=== PATIENT | female | born 1970 | race Caucasian/White ===

== ENCOUNTER 2017-10-11 14:57 | Emergency (ER) | payer OTHER ==
[~2017-10-11] VITALS: Ht 165.1 cm; Wt 64.6 kg
[~2017-10-11 14:57] MED LIST: DIAZ5TAB7 PO
[2017-10-11 15:02] VITALS: BP 115/66
--- NOTE | 2017-10-11 15:09 | NUR ---
Dr. Rodriges evaluating patient at bedside.
--- NOTE | 2017-10-11 15:10 | NUR ---
C/O RT RING FINGER PAIN X 8 DAYS; WITH BLOODY DISHCARGE 2 DAYS AGO; APEARS SWOLLEN; DENIES INJURY HX; DENIES RX; CEPHALEXIN X 8 DAYS
[2017-10-11] MEDS ORDERED: CLINDAMYCIN 600 MG/4 ML VIAL IM ONE (15:15)
[2017-10-11] MEDS ORDERED: DEXAMETHASONE 10 MG/ML VIAL IM ONE (15:15)
[2017-10-11 15:57] VITALS: BP 114/62
--- NOTE | 2017-10-11 15:57 | NUR ---
Patient discharged with v/s stable. Written and verbal after care instructions given and explained. Patient alert, oriented and verbalized understanding of instructions. Ambulatory with steady gait. All questions addressed prior to discharge. ID band removed. Patient advised to follow up with PMD. Rx of ALEVE/CLINDAMYCIN given. Patient educated on indication of medication including possible reaction and side effects. Opportunity to ask questions provided and answered.
== END 2017-10-11 15:57 | disposition home or self-care (01) ==
LOC: MED 14:57
DX: L03.011 Cellulitis of right finger (principal); Z88.8 Allergy status to other drugs, medicaments and biological substances; Z79.899 Other long term (current) drug therapy
CPT/HCPCS: 96372; 99284; J1100; J3490

== ENCOUNTER 2018-01-12 14:36 | Emergency (ER) | payer OTHER ==
[~2018-01-12] VITALS: Ht 165.1 cm; Wt 61.2 kg
[2018-01-12 15:07] VITALS: BP 122/85
--- NOTE | 2018-01-12 15:10 | NUR ---
PATIENT AMB TO BED 10
--- NOTE | 2018-01-12 15:16 | NUR ---
BIB SELF. LLQ PAIN X 2 WEEKS. STATES SHE SAW HER DOCTOR AND IS SCHEDULED FOR A RENAL AND ABD U/S BUT DECIDED TO COME IN BECAUSE THE PAIN GOT WORSE TODAY. DENIES N/V/D; SKIN IS PINK/WARM/DRY; AAOX4 WITH EVEN AND STEADY GAIT; LUNGS CLEAR BL; HR EVEN AND REGULAR; PT DENIES ANY FEVER, CP, SOB, OR COUGH AT THIS TIME; PATIENT STATES PAIN OF 6/10 AT THIS TIME; VSS; PATIENT POSITIONED FOR COMFORT; HOB ELEVATED; BEDRAILS UP X2; BED DOWN. ER MD MADE AWARE OF PT STATUS.
--- NOTE | 2018-01-12 16:45 | NUR ---
NO STATED NEEDS AT THIS TIME.
[2018-01-12] MEDS ORDERED: KETOROLAC 60 MG/2 ML VIAL IM ONE (17:50)
[2018-01-12] MEDS ORDERED: ONDANSETRON 4 MG ODT PO ONE (17:50)
[2018-01-12 18:22] VITALS: BP 120/86
--- NOTE | 2018-01-12 18:22 | NUR ---
Patient discharged with v/s stable. Written and verbal after care instructions given and explained. Patient alert, oriented and verbalized understanding of instructions. Ambulatory with steady gait. All questions addressed prior to discharge. ID band removed. Patient advised to follow up with PMD. Rx of ZOFRAN, MOTRIN, NORCO, PRILOSEC given. Patient educated on indication of medication including possible reaction and side effects. Opportunity to ask questions provided and answered.
== END 2018-01-12 18:22 | disposition home or self-care (01) ==
LOC: MED 14:36
DX: R11.0 Nausea (principal); R10.32 Left lower quadrant pain; Z90.710 Acquired absence of both cervix and uterus; Z79.899 Other long term (current) drug therapy; Z88.5 Allergy status to narcotic agent; Z88.8 Allergy status to other drugs, medicaments and biological substances
CPT/HCPCS: 81002; 81025; 96372; 99283; J1885; Q0162

== ENCOUNTER 2018-11-25 16:24 | Emergency (ER) | payer OTHER ==
[~2018-11-25] VITALS: Ht 165.1 cm; Wt 63.5 kg
[2018-11-25 16:39] VITALS: BP 129/74
--- NOTE | 2018-11-25 16:40 | NUR ---
TO LOBBY AWATING BED IN ED
[2018-11-25 17:39] LABS: BASOPHILS % (AUTO) 0.4 % (0.0-2.0); EOSINOPHILS % (AUTO) 0.1 % (0.0-4.0); HEMOGLOBIN 13.2 g/dL (12.0-16.0); LYMPHOCYTES # (AUTO) 1.7 K/uL (2.5-16.5); LYMPHOCYTES % (AUTO) 14.5 % (20.5-51.1); MEAN CORPUSCULAR HEMOGLOBIN 30 pg (27-31); MEAN CORPUSCULAR HGB CONC 33 g/dL (33-37); MEAN CORPUSCULAR VOLUME 90.7 fL (80-94); MONOCYTES # (AUTO) 0.9 K/uL (0.8-1.0); MONOCYTES % (AUTO) 7.7 % (1.7-9.3); NEUTROPHILS # (AUTO) 8.8 K/uL (1.8-7.7); NEUTROPHILS % (AUTO) 77.3 % (42.2-75.2); PLATELET COUNT (AUTO) 169 K/uL (140-450); RED BLOOD CELL COUNT(AUTO) 4.41 MIL/uL (4.20-5.40); RED CELL DISTRIBUTION WIDTH 14.4 % (11.6-13.7); WHITE BLOOD COUNT (AUTO) 11.4 K/uL (4.8-10.8)
--- NOTE | 2018-11-25 17:56 | NUR ---
PT REMAINS IN LOBBY IN STABLE CONDITION. WILL CONTINUE TO ASSESS.
[2018-11-25 18:03] LABS: APPEARANCE,URINE HAZY (CLEAR); COLOR,URINE YELLOW (YELLOW)
[2018-11-25 18:04] LABS: BILIRUBIN,URINE NEGATIVE (NEGATIVE); BLOOD, URINE 3+ (NEGATIVE); LEUKOCYTE ESTERASE ,URINE 2+ (NEGATIVE); NITRITE, URINE NEGATIVE (NEGATIVE); UGLUCOSE TRACE (NEGATIVE)
[2018-11-25 18:12] LABS: CARBON DIOXIDE 30.9 mmol/L (21-32); POTASSIUM 3.9 mmol/L (3.5-5.1)
[2018-11-25 18:13] LABS: CREATININE 0.7 mg/dL (0.6-1.3)
[2018-11-25 18:34] LABS: RBC,URINE 20-50 /HPF (0-5); WBC,URINE 20-60 /HPF (0-5)
[2018-11-25 18:51] LABS: ALBUMIN 4.1 g/dL (3.4-5.0)
--- NOTE | 2018-11-25 19:07 | NUR ---
PT AMBULATED TO ER BED 01
--- NOTE | 2018-11-25 19:15 | NUR ---
DR ALCANTAR AT BEDSIDE EVALUATING PT
--- NOTE | 2018-11-25 19:30 | NUR ---
48 Y/O FEMALE PRESENTS TO ED, C/O LLQ PAIN X1 DAY. PT STATES PAIN RADIATES TO FLANK, 10/10 ACHING PAIN. DENIES ANY VOMITING BUT COMPLAINS OF NAUSEA. BS ACTIVE X4 QUADRANTS. PT DENIES ANY PAIN VOIDING. DENIES TAKING ANY MEDICATIONS TO ALLEVIATE PAIN. PT VSS. ERMD AWARE. WILL CONTINUE TO MONITOR.
[2018-11-25] MEDS ORDERED: traMADol 50 MG TAB PO ONE (20:05)
[2018-11-25 20:23] VITALS: BP 121/71
--- NOTE | 2018-11-25 20:23 | NUR ---
PT DISCHARGED WITH PAPERWORK. RX MOTRIN, BACTRIM, MINERAL OIL, LACUTLOSE. EDUCATED PT REGARDING MEDICATIONS AND S/E. EDUCATED PT REGARDING D/C DIAGNOSIS AND INSTRUCTIONS. PT VERBALIZED UNDERSTANDING OF TEACHING. TOLD PT TO FOLLOW UP WITH PCP AND WHEN TO RETURN TO ED. PT VSS. ALL QUESTIONS ANSWERED.
== END 2018-11-25 20:23 | disposition home or self-care (01) ==
LOC: MED 16:24
DX: N39.0 Urinary tract infection, site not specified (principal); R11.2 Nausea with vomiting, unspecified; F41.9 Anxiety disorder, unspecified; Z90.710 Acquired absence of both cervix and uterus; Z79.899 Other long term (current) drug therapy; Z88.5 Allergy status to narcotic agent; Z88.8 Allergy status to other drugs, medicaments and biological substances
CPT/HCPCS: 36415; 74018; 80053; 81001; 81025; 83690; 85025; 87086; 87186; 99284; Q0092

== ENCOUNTER 2018-11-26 14:43 | Emergency (ER) | payer OTHER ==
[~2018-11-26] VITALS: Ht 165.1 cm; Wt 63.5 kg
[2018-11-26 14:54] VITALS: BP 125/73
[2018-11-26 20:00] VITALS: BP 131/75
== END 2018-11-26 20:00 | disposition home or self-care (01) ==
LOC: MED 14:43
DX: K59.00 Constipation, unspecified (principal); R11.0 Nausea; F41.9 Anxiety disorder, unspecified; Z90.710 Acquired absence of both cervix and uterus; Z98.890 Other specified postprocedural states; Z79.899 Other long term (current) drug therapy; Z88.5 Allergy status to narcotic agent
CPT/HCPCS: 81002; 81025; 99284

== ENCOUNTER 2019-04-21 20:21 | Emergency (ER) | payer OTHER ==
[~2019-04-21] VITALS: Ht 167.6 cm; Wt 59.9 kg
[2019-04-21 20:28] VITALS: BP 123/80
[2019-04-21] MEDS ORDERED: KETOROLAC 15 MG/ML VIAL IM ONE (21:00)
[2019-04-21 21:30] VITALS: BP 123/80
== END 2019-04-21 21:29 | disposition home or self-care (01) ==
LOC: MED 20:21
DX: R21 Rash and other nonspecific skin eruption (principal); M54.9 Dorsalgia, unspecified; F41.9 Anxiety disorder, unspecified; Z79.899 Other long term (current) drug therapy; Z88.1 Allergy status to other antibiotic agents; W57.XXXA Bitten or stung by nonvenomous insect and other nonvenomous arthropods, initial encounter; Y93.89 Activity, other specified; Y92.89 Other specified places as the place of occurrence of the external cause; Y99.8 Other external cause status
CPT/HCPCS: 90471; 90715; 96372; 99284; J1885

== ENCOUNTER 2021-08-03 17:43 | Emergency (ER) | payer OTHER ==
[~2021-08-03] VITALS: Ht 165.1 cm; Wt 61.2 kg
[~2021-08-03 17:43] MED LIST changes: -DIAZ5TAB7 PO; +DIAZ5TAB8 PO
[2021-08-03 18:04] VITALS: BP 99/55
--- NOTE | 2021-08-03 18:11 | NUR ---
C/O 09/17 LOWER ABD PAIN, LOWER BACK PAIN, FONTENOT,Hematuria X TODAY. PMH: DENIES
--- NOTE | 2021-08-03 19:16 | NUR ---
PT AMBULATED TO BED 2
--- NOTE | 2021-08-03 19:37 | NUR ---
ER AT BEDSIDE
[2021-08-03] MEDS ORDERED: KETOROLAC 60 MG/2 ML VIAL IM ONE (19:40)
[2021-08-03] MEDS ORDERED: IBUP-2213 PO ×2 (19:48→20:04)
[2021-08-03] MEDS ORDERED: PHEN-1877 PO ×2 (19:48→20:04)
[2021-08-03] MEDS ORDERED: CIPR500T4 PO ×2 (19:48→20:04)
[2021-08-03 20:05] VITALS: BP 102/64
--- NOTE | 2021-08-03 20:06 | NUR ---
Patient discharged with v/s stable. Written and verbal after care instructions given and explained. Patient alert, oriented and verbalized understanding of instructions. Ambulatory with steady gait. All questions addressed prior to discharge. ID band removed. Patient advised to follow up with PMD. Rx of CIPRO, IBUPROFEN, AND PYRIDIUM given. Patient educated on indication of medication including possible reaction and side effects. Opportunity to ask questions provided and answered. VSS, A/OX4, AMBULATORY
== END 2021-08-03 20:06 | disposition home or self-care (01) ==
LOC: MED 17:43
DX: N39.0 Urinary tract infection, site not specified (principal); F41.9 Anxiety disorder, unspecified; Z90.710 Acquired absence of both cervix and uterus; Z98.890 Other specified postprocedural states; Z79.899 Other long term (current) drug therapy; Z88.5 Allergy status to narcotic agent
CPT/HCPCS: 81002; 81025; 96372; 99283; J1885

== ENCOUNTER 2021-08-06 17:37 | Emergency (ER) | payer OTHER ==
[~2021-08-06] VITALS: Ht 162.6 cm; Wt 65.8 kg
[~2021-08-06 17:37] MED LIST changes: +CIPR500T4 PO; +IBUP-2213 PO; +PHEN-1877 PO
[2021-08-06 18:07] VITALS: BP 115/64
[2021-08-06 19:07] LABS: BASOPHILS % (AUTO) 0.3 % (0.0-2.0); EOSINOPHILS % (AUTO) 0.6 % (0.0-4.0); HEMATOCRIT 40.2 % (36-48); HEMOGLOBIN 13.4 g/dL (12.0-16.0); LYMPHOCYTES # (AUTO) 0.9 K/uL (2.5-16.5); LYMPHOCYTES % (AUTO) 16.5 % (20.5-51.1); MEAN CORPUSCULAR HEMOGLOBIN 30 pg (27-31); MEAN CORPUSCULAR HGB CONC 33 g/dL (33-37); MEAN CORPUSCULAR VOLUME 88.9 fL (80-94); MONOCYTES # (AUTO) 0.3 K/uL (0.8-1.0); MONOCYTES % (AUTO) 5.7 % (1.7-9.3); NEUTROPHILS # (AUTO) 4.2 K/uL (1.8-7.7); NEUTROPHILS % (AUTO) 76.9 % (42.2-75.2); PLATELET COUNT (AUTO) 134 K/uL (140-450); RED BLOOD CELL COUNT(AUTO) 4.52 MIL/uL (4.20-5.40); RED CELL DISTRIBUTION WIDTH 13.6 % (11.6-13.7); WHITE BLOOD COUNT (AUTO) 5.4 K/uL (4.8-10.8)
--- NOTE | 2021-08-06 19:36 | NUR ---
Dr. Santos examining patient.
[2021-08-06] MEDS ORDERED: PHENAZOPYRIDINE 100 MG TAB PO ONE (19:45)
[2021-08-06] MEDS ORDERED: KETOROLAC 30 MG/ML VIAL IM ONE (19:45)
[2021-08-06 19:51] LABS: CARBON DIOXIDE 28.3 mmol/L (21-32); CREATININE 0.8 mg/dL (0.6-1.3); POTASSIUM 4.3 mmol/L (3.5-5.1); TOTAL BILIRUBIN 0.5 mg/dL (0.0-1.0)
[2021-08-06] MEDS ORDERED: SULFAMETH/TRIMETH DS 800/160MG 1 TAB PO ONE (20:00)
--- NOTE | 2021-08-06 20:31 | NUR ---
Patient ambulated to bed 4.
[2021-08-06] MEDS ORDERED: PYR100 PO (20:38)
[2021-08-06] MEDS ORDERED: ACET-10509 PO (20:38)
[2021-08-06] MEDS ORDERED: SULF-59 PO (20:38)
--- NOTE | 2021-08-06 21:00 | NUR ---
51 YO F C/O DIARRHEA WITH LOWER ABDOMINAL CRAMPING SINCE THIS AM CURRENTLY ON ANTIBIOTICS FOR UTI
--- NOTE | 2021-08-06 21:40 | NUR ---
Patient discharged with v/s stable. Written and verbal after care instructions given and explained. Patient alert, oriented and verbalized understanding of instructions. Ambulatory with steady gait. All questions addressed prior to discharge. ID band removed. Patient advised to follow up with PMD. Rx of TYLENOL, PYRIDIUM, BACTRIM given. Patient educated on indication of medication including possible reaction and side effects. Opportunity to ask questions provided and answered.
[2021-08-06 22:08] LABS: APPEARANCE,URINE CLEAR (CLEAR); BILIRUBIN,URINE NEGATIVE (NEGATIVE); BLOOD, URINE NEGATIVE (NEGATIVE); COLOR,URINE ORANGE (YELLOW); LEUKOCYTE ESTERASE ,URINE NEGATIVE (NEGATIVE); NITRITE, URINE NEGATIVE (NEGATIVE); UGLUCOSE 1+ (NEGATIVE)
== END 2021-08-06 21:40 | disposition home or self-care (01) ==
LOC: MED 17:37
DX: N39.0 Urinary tract infection, site not specified (principal); F41.9 Anxiety disorder, unspecified; Z79.891 Long term (current) use of opiate analgesic; Z90.711 Acquired absence of uterus with remaining cervical stump; Z98.890 Other specified postprocedural states
CPT/HCPCS: 36415; 80053; 81003; 83690; 85025; 87086; 96372; 99283; J1885

== ENCOUNTER 2021-09-13 15:25 | Emergency (ER) | payer OTHER ==
[~2021-09-13] VITALS: Ht 165.1 cm; Wt 60.9 kg
[~2021-09-13 15:25] MED LIST changes: +ACET-10509 PO; +PYR100 PO; +SULF-59 PO
[2021-09-13 15:56] VITALS: BP 118/69
--- NOTE | 2021-09-13 16:29 | NUR ---
PT SEEN BY RENE CORONADO IN TRIAGE
--- NOTE | 2021-09-13 16:30 | NUR ---
51 Y/O FEMALE BIB SELF C/O OF SWELLING AND BURNING PAIN, AND BUG BITE ON THE RIGHT UPPER THIGH/[id number]. ALLERGY: TRAMADOL, VICODIN PMH: HDL
[2021-09-13] MEDS ORDERED: ACYC400T14 PO (16:34)
[2021-09-13 16:45] VITALS: BP 118/69
--- NOTE | 2021-09-13 16:48 | NUR ---
Patient discharged with v/s stable. Written and verbal after care instructions given and explained. Patient alert, oriented and verbalized understanding of instructions. Ambulatory with steady gait. All questions addressed prior to discharge. ID band removed. Patient advised to follow up with PMD. Rx of ACYCLOVIR given. Patient educated on indication of medication including possible reaction and side effects. Opportunity to ask questions provided and answered.
== END 2021-09-13 16:48 | disposition home or self-care (01) ==
LOC: MED 15:25
DX: B02.9 Zoster without complications (principal); F41.9 Anxiety disorder, unspecified; Z90.710 Acquired absence of both cervix and uterus; Z79.891 Long term (current) use of opiate analgesic; Z88.5 Allergy status to narcotic agent; Z98.890 Other specified postprocedural states
CPT/HCPCS: 99283

== ENCOUNTER 2022-06-29 21:49 | Emergency (ER) | payer OTHER ==
[~2022-06-29] VITALS: Ht 165.1 cm; Wt 59.0 kg
[~2022-06-29 21:49] MED LIST changes: +ACYC400T14 PO
[2022-06-29 22:29] VITALS: BP 158/96
[2022-06-29 22:37] VITALS: BP 158/96
[2022-06-29 23:30] LABS: APPEARANCE,URINE CLEAR (CLEAR); BILIRUBIN,URINE NEGATIVE (NEGATIVE); BLOOD, URINE NEGATIVE (NEGATIVE); COLOR,URINE YELLOW (YELLOW); LEUKOCYTE ESTERASE ,URINE NEGATIVE (NEGATIVE); NITRITE, URINE NEGATIVE (NEGATIVE); UGLUCOSE NEGATIVE (NEGATIVE)
[2022-06-29 23:47] LABS: BASOPHILS % (AUTO) 0.5 % (0.0-2.0); EOSINOPHILS % (AUTO) 0.6 % (0.0-4.0); HEMATOCRIT 37.7 % (36-48); HEMOGLOBIN 12.6 g/dL (12.0-16.0); LYMPHOCYTES # (AUTO) 1.8 K/uL (2.5-16.5); LYMPHOCYTES % (AUTO) 27.4 % (20.5-51.1); MEAN CORPUSCULAR HEMOGLOBIN 30 pg (27-31); MEAN CORPUSCULAR HGB CONC 33 g/dL (33-37); MEAN CORPUSCULAR VOLUME 88.8 fL (80-94); MONOCYTES # (AUTO) 0.5 K/uL (0.8-1.0); MONOCYTES % (AUTO) 7.7 % (1.7-9.3); NEUTROPHILS # (AUTO) 4.2 K/uL (1.8-7.7); NEUTROPHILS % (AUTO) 63.8 % (42.2-75.2); PLATELET COUNT (AUTO) 169 K/uL (140-450); RED BLOOD CELL COUNT(AUTO) 4.25 MIL/uL (4.20-5.40); RED CELL DISTRIBUTION WIDTH 14.2 % (11.6-13.7); WHITE BLOOD COUNT (AUTO) 6.5 K/uL (4.8-10.8)
[2022-06-30 00:05] LABS: ALBUMIN 3.9 g/dL (3.4-5.0); ANION GAP 11.1 (8-16); CARBON DIOXIDE 29.7 mmol/L (21-32); CREATININE 0.7 mg/dL (0.6-1.3); POTASSIUM 3.8 mmol/L (3.5-5.1); TOTAL BILIRUBIN 0.4 mg/dL (0.0-1.0)
[2022-06-30] MEDS ORDERED: FAMO-92 PO (03:13)
--- NOTE | 2022-06-30 03:18 | NUR ---
PT CLEARED FOR D/C BY DR. BARRIOS. ALL D/C INSTRUCTIONS VERBALIZED TO PT BY DR. BARRIOS. RX OF PEPCID GIVEN
[2022-06-30] MEDS ORDERED: ONDA-188 SL (03:21)
== END 2022-06-30 03:18 | disposition home or self-care (01) ==
LOC: MED 21:49
DX: K29.70 Gastritis, unspecified, without bleeding (principal); F41.9 Anxiety disorder, unspecified; F32.9 Major depressive disorder, single episode, unspecified; Z79.899 Other long term (current) drug therapy; Z79.2 Long term (current) use of antibiotics; Z79.1 Long term (current) use of non-steroidal anti-inflammatories (NSAID); Z88.5 Allergy status to narcotic agent
CPT/HCPCS: 36415; 76705; 80053; 81003; 82150; 83690; 85025; 99284; Q0092

== ENCOUNTER 2022-11-10 06:05 | Emergency (ER) | payer OTHER ==
[~2022-11-10] VITALS: Ht 165.1 cm; Wt 59.0 kg
[~2022-11-10 06:05] MED LIST changes: +FAMO-92 PO; +ONDA-188 SL
[2022-11-10 06:10] VITALS: BP 107/67; PULSE 58; RESP 18; TEMP 97.1; O2SAT 99
[2022-11-10 06:38] LABS: BILIRUBIN,URINE NEGATIVE (NEGATIVE); BLOOD, URINE 3+ (NEGATIVE); LEUKOCYTE ESTERASE ,URINE 2+ (NEGATIVE); NITRITE, URINE NEGATIVE (NEGATIVE); PROTEIN,URINE TRACE (NEGATIVE); UGLUCOSE NEGATIVE (NEGATIVE); UROBILINOGEN,URINE 0.2 EU/dL (0.2 - 1)
[2022-11-10 06:42] LABS: APPEARANCE,URINE HAZY (CLEAR); COLOR,URINE YELLOW (YELLOW)
[2022-11-10] MEDS ORDERED: SULF-59 PO ×2 (06:48→07:15)
[2022-11-10] MEDS ORDERED: PYR100 PO ×2 (06:48→07:15)
[2022-11-10] MEDS ORDERED: IBUPROFEN 600 MG TAB PO ONE (06:50)
[2022-11-10 07:08] LABS: SQUAMOUS EPITHELIAL CELL,UR 0-3 (FEW) /LPF (0-3 (FEW))
[2022-11-10 07:12] LABS: RBC,URINE 11-20 (MOD) /HPF (0-5); WBC,URINE 16-25 (MOD) /HPF (0-5); YEAST,URINE Moderate /HPF (None Seen)
[2022-11-10 07:13] LABS: BACTERIA,URINE FEW /HPF (None Seen)
== END 2022-11-10 07:05 | disposition home or self-care (01) ==
LOC: MED 06:05
DX: N39.0 Urinary tract infection, site not specified (principal); Z79.899 Other long term (current) drug therapy; Z79.2 Long term (current) use of antibiotics; Z79.1 Long term (current) use of non-steroidal anti-inflammatories (NSAID); Z88.5 Allergy status to narcotic agent
CPT/HCPCS: 81001; 81025; 87086; 99283